=== PATIENT | male | born 1965 | race Caucasian/White ===

== ENCOUNTER → 2021-12-06 | Day surgery (SDC) | payer OTHER ==
[~2021-12-06] MED LIST: ACTOS15 MG PO; DAILY VALUE1 EACH PO; DESYREL 50 MG T50 MG PO; FISH OIL PO; GLIPIZIDE5 MG PO; JARDIANCE25 MG PO; LIPITOR TAB 1010 MG PO; METFORMIN HCL1000 M1 PO; NEXIUM20 MG PO; OZEMPIC1 MG/0.71 SQ; QUINAPRIL-HCTZ1 EAC1 PO
== END | disposition home or self-care (01) ==
LOC: OR 06:54
DX: Z12.11 Encounter for screening for malignant neoplasm of colon (principal); D12.4 Benign neoplasm of descending colon; K64.4 Residual hemorrhoidal skin tags; Z86.010 Personal history of colon polyps; I10 Essential (primary) hypertension; E78.5 Hyperlipidemia, unspecified; J44.9 Chronic obstructive pulmonary disease, unspecified; K21.9 Gastro-esophageal reflux disease without esophagitis; E11.65 Type 2 diabetes mellitus with hyperglycemia; F17.210 Nicotine dependence, cigarettes, uncomplicated; Z79.84 Long term (current) use of oral hypoglycemic drugs; Z79.899 Other long term (current) drug therapy
CPT/HCPCS: 82962; J2704; J7120